=== PATIENT | female | born 1980 | race Caucasian/White ===

== ENCOUNTER 2016-08-27 07:52 | Day surgery (SDC) | payer OTHER ==
--- NOTE | 2016-08-26 15:43 | HP ---
DATE OF ADMISSION: 08/27/2016. AGE: 36-year-old female. ADMITTING DIAGNOSES: 1. Right flank pain. 2. Calculus right ureter. PLANNED PROCEDURE: Right ureteroscopy, laser lithotripsy and stent insertion. SURGEON: Dr. Bowman. HISTORY OF PRESENT ILLNESS: Paulette Colon is a 36-year-old lady who had initially been evaluated in [facility] Emergency Room for right flank pain and gross hematuria. She was diagnosed with a 6 mm calculus in the right ureter and was managed conservatively, but continues to have episodic pain and gross hematuria and an ultrasound in my office revealed a 6.7 mm calculus in the right distal ureter with significantly reduced right ureteral jet noted. I discussed with her the option of trying to continue conservative management, but because of the severity of pain, she would like to have the stone removed and is now being brought in for endoscopic management. PAST MEDICAL HISTORY: Significant for: 1. Multiple sclerosis. 2. Psoriatic arthritis. PAST SURGICAL HISTORY: Significant for six procedures for removal of uterine fibroids with recurrence of fibroids after each one. MEDICATIONS ON ADMISSION: 1. Humira every 2 weeks. 2. Methotrexate 8 pills once a week. 3. Paroxetine 20 mg daily. 4. Folic acid daily. ALLERGIES: PENICILLIN AND CLINDAMYCIN (hives with both). FAMILY HISTORY: Her grandmother has a history of extensive kidney stones. SMOKING HISTORY: She smokes one to two cigarettes a day. REVIEW OF SYSTEMS: There is no history of diabetes mellitus or any other major systemic illness other than multiple sclerosis and the psoriatic arthritis. She denies any chest pain or shortness of breath. PHYSICAL EXAMINATION GENERAL: Pleasant, mildly overweight, young lady. VITAL SIGNS: Blood pressure 132/90, pulse 66 per minute, temperature 98.1, oxygen saturation 97 percent on room air. CARDIOVASCULAR: Regular rate and rhythm, S1, S2. LUNGS: Clear bilaterally. ABDOMEN: Soft with right flank tenderness. IMPRESSION: Tcghlb-[id number]-old lady with persistent with flank pain secondary to a partially obstructing calculus in the right distal ureter. PLAN: Planned procedure is right ureteroscopy, possible laser and stent insertion. CC: Dr. Tere Márquez* [id number]/[facility] #: [id number] [facility]ERSami
[~2016-08-27 07:52] MED LIST: Buffered Lidocaine 1% SYRIN* 3 ML/SYR SYRINGE INTRADERM ONE; Dexamethasone IV* 4 MG/ML 1 ML (4 MG) IV SLOW PU ONE; Famotidine IV* 10 MG/ML 2 ML (20 mg) IV ONE; Iohexol 180 (CONTRAST) 10 ML SDV IV ONE
[2016-08-27] MEDS ORDERED: Famotidine IV* 10 MG/ML 2 ML (20 mg) ONE (08:01)
[2016-08-27] MEDS ORDERED: Dexamethasone IV* 4 MG/ML 1 ML (4 MG) ONE (08:02)
[2016-08-27] MEDS ORDERED: Levofloxacin 500 MG IVPREMIX(* 500 MG/100 ML BAG IVPB ONE ×2 (08:02→09:00)
[2016-08-27 08:20] LABS: Manual Entry Verification MR; UR Preg Internal Control QC Line Present
[2016-08-27] MEDS ORDERED: fentaNYL* 50 MCG/ML 2 ML VIAL (100 MCG VIAL) ONE ×3 (09:10→10:24)
[2016-08-27] MEDS ORDERED: Midazolam* 1 MG/ML 5 ML VIAL (5 MG) ONE (09:11)
[2016-08-27] MEDS ORDERED: Propofol* 10 MG/ML 20 ML BTL IV PUSH ONE ×2 (09:19→09:35)
[2016-08-27] MEDS ORDERED: Lidocaine 2% PF * 5 ML VIAL ONE (09:19)
[2016-08-27] MEDS ORDERED: Ondansetron INJ* 2 MG/ML VIAL ONE (09:39)
[2016-08-27] MEDS ORDERED: HYDROcodone/ACETAMIN 5-325 MG* 1 TAB PO PRN (09:48)
[2016-08-27] MEDS ORDERED: PROCHLORPERAZINE INJ 5 MG/ML 2 ML VIAL IV PRN (09:48)
[2016-08-27] MEDS: fentaNYL* 50 MCG/ML 2 ML VIAL (100 MCG VIAL) IV PRN ×2 (10:25→10:32)
[2016-08-27] MEDS ORDERED: oxyCODONE/Acetamin 5/325 MG* TAB ONE ×2 (10:50→11:21)
[2016-08-27] MEDS: oxyCODONE/Acetamin 5/325 MG* TAB PO PRN ×2 (10:51→11:22)
[2016-08-27] MEDS ORDERED: Solifenacin(NF) 5 MG TAB PO ONE (11:00)
[2016-08-27 11:37] VITALS: BP 136/64
--- NOTE | 2016-08-27 12:12 | RAD ---
CPT II Codes: 6045F INDICATION: Ureteral stent placement to treat right-sided nephrolithiasis. TECHNIQUE: Intraoperative fluoroscopy was provided during retrograde right ureteral stent placement. FINDINGS: 7 spot films depict retrograde cannulation and contrast nephrostogram of the right ureter. Final imaging depicts an anatomically aligned right ureteral stent. Fluoroscopy time: 4 seconds IMPRESSION: As above.
--- NOTE | 2016-08-27 13:16 | OP ---
OPERATIVE SUMMARY: CC: Dr. Tere Márquez; Dr. Bowman DATE OF OPERATION: 08/27/16 DATE OF : [birth year] AGE: 36 years, female. SURGEON: Dr. Bowman. ANESTHESIOLOGIST: Dr. Fermin. ANESTHESIA: General. PRE-OP DIAGNOSES: 1. Right hydronephrosis. 2. Calculus, right ureter. POST-OP DIAGNOSES: 1. Right hydronephrosis. 2. Calculus, right ureter. SURGICAL PROCEDURE: Cystoscopy, right retrograde pyelogram, right ureteroscopy, and laser lithotrip sy of right ureteral calculus and removal of calculus fragments and right stent insertion. COMPLICATIONS: None. STENT USED: 6-Macanese stent, right ureter. OPERATIVE FINDINGS: A 6 to 7 mm calculus impacted in the right distal ureter with surrounding edema and inflammation and mild right hydronephrosis. POSTOPERATIVE CONDITION: Stable. INDICATIONS: Paulette Colon is a 36-year-old lady with persistent right flank pain secondary to a ur eteral calculus in the right ureter. DESCRIPTION OF PROCEDURE: After induction of general anesthesia, the patient was placed in dorsal l ithotomy position, sequential compression devices were in place and functioning. Initials cystoscop y revealed normal-appearing bladder. Guidewire was introduced into the right ureter. Retrograde py elogram revealed mild fullness of the right collecting system. A 6-Macanese semirigid ureteroscope wa s introduced and advanced under direct vision. Approximately, 2 cm above the ureterovesical junctio n, a 6 to 7 mm calculus was noted to be impacted with surrounding edema and inflammation. Using a 5 50 micron holmium laser, this was successfully fragmented. The calculus was fairly soft and fragment ed very easily into multiple tiny fragments with the use of the laser. Some of the fragments were t oo small even to send for analysis but I removed all of the visible fragments and during the removal these crumbled into even smaller pieces. The ureteroscope was advanced into the upper ureter to ma ke sure there were no additional stones or fragments and none were noted. A 6-Macanese stent was intr oduced and positioned under fluoroscopy with good proximal and distal positioning obtained. The arlene dder was emptied. The patient tolerated the procedure satisfactorily and was transferred back to [facility] recovery area in stable condition. [id number]/[facility] #: [id number]
== END 2016-08-27 11:39 | disposition home or self-care (01) ==
LOC: OR 07:52
PROVIDERS: ATTEND Urology
DX: N13.2 Hydronephrosis with renal and ureteral calculous obstruction (principal); R31.0 Gross hematuria; G35 Multiple sclerosis; L40.50 Arthropathic psoriasis, unspecified; F17.210 Nicotine dependence, cigarettes, uncomplicated
CPT/HCPCS: 74420; 81025; 82365; 88300; A9270-GY; C1876; J1100; J1580; J1956; J2250; J2405; J2704; J3010

== ENCOUNTER 2016-09-05 18:05 | Emergency (ER) | payer OTHER ==
[2016-09-05] MEDS ORDERED: NS 0.9% 1000 ML* 1,000 ML IV ONE (21:36)
[2016-09-05] MEDS ORDERED: Morphine INJ* 4 MG/ML 1 ML SYRINGE IV ONE (21:36)
[2016-09-05] MEDS ORDERED: Ondansetron INJ* 2 MG/ML VIAL IV ONE (21:36)
[2016-09-05 22:11] LABS: Urine Bacteria 1+ (Absent); Urine Bilirubin Negative (Negative); Urine Glucose Negative (Negative); Urine Nitrite Negative (Negative)
[2016-09-05 22:22] LABS: Albumin 4.2 g/dL (3.2-5.2); BUN/Creatinine Ratio 21.9 (8-20); C Reactive Protein 12.64 mg/L (< 5.00); Calcium 9.4 mg/dL (8.6-10.3); EGFR African American 115.4 (>60); EGFR Non-African American 89.7 (>60); Globulin 3.5 g/dL (2-4); Total Bilirubin 0.4 mg/dL (0.2-1.0); Total Protein 7.7 g/dL (6.4-8.9)
[2016-09-05 22:23] LABS: Hematocrit 41 % (35-47); Mean Corpuscular HGB Conc 32 g/dl (31-36); Mean Corpuscular Hemoglobin 26 pg (27-31); Mean Corpuscular Volume 82 fL (80-97); Mean Platelet Volume 8 um3 (7.4-10.4); Red Blood Count 4.93 10^6/ul (4.0-5.4); Red Cell Distribution Width 17 % (10.5-15); White Blood Count 13.3 10^3/ul (3.5-10.8)
--- NOTE | 2016-09-05 22:50 | ED ---
Abdominal Pain/Female - HPI Summary HPI Summary: Patient presents with LLQ and RLQ abdominal pain that began this afternoon. She has a history of kidney stone removal and stent placement two weeks ago with stent removal three days ago. Her post-surgical course was uneventful until today. Her urine was bloody the whole time the stent was in place, but has been clear since its removal. She denies fever, chills, vaginal discharge, N/V/D or urinary symptoms. - History of Current Complaint Chief Complaint: EDGeneral Stated Complaint: ABD PAIN Time Seen by Provider: 09/05/16 21:14 Hx Obtained From: Patient Hx Last Menstrual Period: polyp surgery 3 weeks ago - nothing since then ?: No Onset/Duration: Sudden Onset, Lasting Hours Timing: Constant Severity Initially: Moderate Severity Currently: Moderate Pain Intensity: 6 Location: Suprapubic - LLQ and RLQ Radiates: No Character: Sharp Aggravating Factor(s): Nothing Alleviating Factor(s): Nothing Associated Signs and Symptoms: Positive: Negative Allergies/Adverse Reactions: Allergies Allergy/AdvReac Type Severity Reaction Status Date / Time [place] Allergy Severe Swelling Verified 08/27/16 08:07 Of Face,Lips,& Throat Clindamycin Allergy Intermediate Hives Verified 08/27/16 08:07 Penicillins Allergy Intermediate Hives Verified 08/27/16 08:07 PMH/Surg Hx/FS Hx/Imm Hx Cardiovascular History: Reports: Hx Hypertension - Hx OF, WHEN GI History: Reports: Hx Crohn's Disease - YOUNG TEENAGER, NO Sx SINCE EARLY 20s, Hx Ulcer - bleeding ulcer in stomach several years ago - resolved History: Reports: Hx Kidney Stones, Other Problems/Disorders - uterine polyps-D&C Musculoskeletal History: Reports: Hx Arthritis - psoriatic arthritis, Hx Back Problems Sensory History: Reports: Hx Contacts or Glasses - CONTACTS, WILL PROBABLY WEAR & BRING CASE Denies: Hx Hearing Aid Opthamlomology History: Reports: Hx Contacts or Glasses - CONTACTS, WILL PROBABLY WEAR & BRING CASE Neurological History: Reports: Hx Migraine - Hx OF, Hx Nerve Disease - nerve pain from MS, Psoriatic arthritis, Other Neuro Impairments/Disorders - Multiple Sclerosis rheumatoid arthritis Psychiatric History: Reports: Hx Anxiety, Hx Depression, Hx Panic Disorder - occasional - Cancer History Hx Chemotherapy: No Hx Radiation Therapy: No - Surgical History Surgery Procedure, Year, and Place: d&c, uterine polypectomy x5 Hx Anesthesia Reactions: No Infectious Disease History: No Infectious Disease History: Denies: Hx Clostridium Difficile, Hx Hepatitis, Hx Human Immunodeficiency Virus (HIV), Hx of Known/Suspected MRSA, Hx Shingles, Hx Tuberculosis, Traveled Outside the [place] in Last 30 Days - Family History Known Family History: Positive: None - Social History Occupation: Employed Full-time Lives: With Family Alcohol Use: None Alcohol Amount: 2 beers/week Substance Use Type: Reports: None Smoking Status (MU): Light Every Day Tobacco Smoker Type: Cigarettes Amount Used/How Often: 1-2 cigarettes/day,20 years Length of Time of Smoking/Using Tobacco: 18 YRS Have You Smoked in the Last Year: Yes Cessation Counseling: Patient Advised to Stop Review of Systems Negative: Fever, Chills Negative: Shortness Of Breath Positive: Abdominal Pain. Negative: Vomiting, Diarrhea, Nausea Positive: no symptoms reported All Other Systems Reviewed And Are Negative: Yes Physical Exam Triage Information Reviewed: Yes Vital Signs On Initial Exam: Initial Vitals Temp Pulse Resp BP Pulse Ox 98.5 F 77 20 152/78 100 09/05/16 18:44 09/05/16 18:44 09/05/16 18:44 09/05/16 18:44 09/05/16 18:44 Vital Signs Reviewed: Yes Appearance: Positive: Well-Appearing, Pain Distress, Obese Skin: Positive: Warm, Skin Color Reflects Adequate Perfusion, Dry, Soft Head/Face: Positive: Normal Head/Face Inspection Eyes: Positive: EOMI, WILLIAM, Conjunctiva Clear ENT: Positive: Hearing grossly normal Respiratory/Lung Sounds: Positive: Clear to Auscultation, Breath Sounds Present Cardiovascular: Positive: RRR Abdomen Description: Positive: Soft. Negative: Nontender - TTP suprapubic, LLQ and RLQ regions, CVA Tenderness (R), CVA Tenderness (L), Distended, Guarding Bowel Sounds: Positive: Present Musculoskeletal: Negative: Edema Left, Edema Right Neurological: Positive: Sensory/Motor Intact, Alert, Oriented to Person Place, Time, [place] Bundle Intact Distally, Normal Gait Psychiatric: Positive: Affect/Mood Appropriate AVPU Assessment: Alert - [place] Coma Scale Coma Scale Total: 15 Diagnostics - Vital Signs Vital Signs Temp Pulse Resp BP Pulse Ox 09/05/16 21:55 16 09/05/16 20:05 98.5 F 95 16 163/67 100 05/19/17 18:46 98.5 F 77 16 152/78 100 09/05/16 18:44 98.5 F 77 20 152/78 100 - Laboratory Lab Results: Lab Results 09/05/16 09/05/16 09/05/16 Range/Units 21:55 21:55 21:55 WBC 13.3 H (3.5-10.8) 10^3/ul RBC 4.93 (4.0-5.4) 10^6/ul Hgb 13.0 (12.0-16.0) g/dl Hct 41 (35-47) % MCV 82 (80-97) fL MCH 26 L (27-31) pg MCHC 32 (31-36) g/dl RDW 17 H (10.5-15) % Plt Count 320 (150-450) 10^3/ul MPV 8 (7.4-10.4) um3 Neut % (Auto) 72.1 (38-83) % Lymph % (Auto) 21.6 L (25-47) % Loving % (Auto) 5.7 (1-9) % Eos % (Auto) 0 (0-6) % Baso % (Auto) 0.6 (0-2) % Absolute Neuts (auto) 9.6 H (1.5-7.7) 10^3/ul Absolute Lymphs (auto) 2.9 (1.0-4.8) 10^3/ul Absolute Monos (auto) 0.8 (0-0.8) 10^3/ul Absolute Eos (auto) 0 (0-0.6) 10^3/ul Absolute Basos (auto) 0.1 (0-0.2) 10^3/ul Absolute Nucleated RBC 0.05 10^3/ul Nucleated RBC % 0.4 Sodium 136 (133-145) mmol/L Potassium Pending Chloride 104 (101-111) mmol/L Carbon Dioxide 22 (22-32) mmol/L Anion Gap Pending BUN 16 (6-24) mg/dL Creatinine 0.73 (0.51-0.95) mg/dL Est GFR ( Amer) 115.4 (>60) Est GFR (Non-Af Amer) 89.7 (>60) BUN/Creatinine Ratio 21.9 H (8-20) Glucose 87 (70-100) mg/dL Lactic Acid (0.5-2.0) mmol/L Calcium 9.4 (8.6-10.3) mg/dL Total Bilirubin 0.40 (0.2-1.0) mg/dL AST Pending ALT 18 (7-52) U/L Alkaline Phosphatase 77 (34-104) U/L C-Reactive Protein 12.64 H (< 5.00) mg/L Total Protein 7.7 (6.4-8.9) g/dL Albumin 4.2 (3.2-5.2) g/dL Globulin 3.5 (2-4) g/dL Albumin/Globulin Ratio 1.2 (1-3) Urine Color Yellow Urine Appearance Cloudy Urine pH 5.0 (5-9) Ur Specific [place] 1.019 (1.010-1.030) Urine Protein Negative (Negative) Urine Ketones Negative (Negative) Urine Blood 1+ H (Negative) Urine Nitrate Negative (Negative) Urine Bilirubin Negative (Negative) Urine Urobilinogen Negative (Negative) Ur Leukocyte Esterase 3+ H (Negative) Urine WBC (Auto) 3+(>20/hpf) H (Absent) Urine RBC (Auto) 3+(>10/hpf) H (Absent) Ur Squamous Epith Cells Present H (Absent) Urine Bacteria 1+ H (Absent) Urine Glucose Negative (Negative) 09/05/16 Range/Units 21:55 WBC (3.5-10.8) 10^3/ul RBC (4.0-5.4) 10^6/ul Hgb (12.0-16.0) g/dl Hct (35-47) % MCV (80-97) fL MCH (27-31) pg MCHC (31-36) g/dl RDW (10.5-15) % Plt Count (150-450) 10^3/ul MPV (7.4-10.4) um3 Neut % (Auto) (38-83) % Lymph % (Auto) (25-47) % Loving % (Auto) (1-9) % Eos % (Auto) (0-6) % Baso % (Auto) (0-2) % Absolute Neuts (auto) (1.5-7.7) 10^3/ul Absolute Lymphs (auto) (1.0-4.8) 10^3/ul Absolute Monos (auto) (0-0.8) 10^3/ul Absolute Eos (auto) (0-0.6) 10^3/ul Absolute Basos (auto) (0-0.2) 10^3/ul Absolute Nucleated RBC 10^3/ul Nucleated RBC % Sodium (133-145) mmol/L Potassium Chloride (101-111) mmol/L Carbon Dioxide (22-32) mmol/L Anion Gap BUN (6-24) mg/dL Creatinine (0.51-0.95) mg/dL Est GFR ( Amer) (>60) Est GFR (Non-Af Amer) (>60) BUN/Creatinine Ratio (8-20) Glucose (70-100) mg/dL Lactic Acid 0.7 (0.5-2.0) mmol/L Calcium (8.6-10.3) mg/dL Total Bilirubin (0.2-1.0) mg/dL AST ALT (7-52) U/L Alkaline Phosphatase (34-104) U/L C-Reactive Protein (< 5.00) mg/L Total Protein (6.4-8.9) g/dL Albumin (3.2-5.2) g/dL Globulin (2-4) g/dL Albumin/Globulin Ratio (1-3) Urine Color Urine Appearance Urine pH (5-9) Ur Specific [place] (1.010-1.030) Urine Protein (Negative) Urine Ketones (Negative) Urine Blood (Negative) Urine Nitrate (Negative) Urine Bilirubin (Negative) Urine Urobilinogen (Negative) Ur Leukocyte Esterase (Negative) Urine WBC (Auto) (Absent) Urine RBC (Auto) (Absent) Ur Squamous Epith Cells (Absent) Urine Bacteria (Absent) Urine Glucose (Negative) Result Diagrams: 09/05/16 21:55 09/05/16 21:55 Lab Statement: Any lab studies that have been ordered have been reviewed, and results considered in the medical decision making process. - CT No standard instances CT Interpretation: Positive (See Comments) CT Interpretation Completed By: Radiologist - right ovarian cyst Re-Evaluation - Re-Evaluation First Eval Re-Evaluation Time: 22:45 Change: Improved - pain decreased. Abdominal Pain Fem Course/Dx - Diagnoses Differential Diagnosis: Positive: Appendicitis, Bowel Obstruction, Ovarian Cyst , Peptic Ulcer Disease, Renal Colic, Urinary Tract Infection Provider Diagnoses: Right ovarian cyst Discharge - Discharge Plan Condition: Stable Disposition: HOME Prescriptions: Hydrocodone-Acetaminophen [[place] 5-325 mg] 1 tab PO Q4H PRN #18 tab MDD 6 PRN Reason: Pain Patient Education Materials: Ruptured Ovarian Cyst (ED) Referrals: Tere Márquez MD [Primary Care Provider] - Additional Instructions: Please call your MOLD INSPECTOR Thursday to discuss tonight's visit and findings. Use the pain medication provided as needed. Return to the emergency department if symptoms worsen.
[2016-09-05 23:04] LABS: Potassium 5.4 mmol/L (3.5-5.0)
[2016-09-06] MEDS ORDERED: Iohexol 300* (CONTRAST) 10 ML SDV IV ONE (00:45)
[2016-09-06] MEDS ORDERED: Morphine INJ* 4 MG/ML 1 ML SYRINGE IV ONE (00:59)
[2016-09-06 02:17] VITALS: BP 140/58
[2016-09-06] MEDS ORDERED: HYDROcodone/ACETAMIN 5-325 MG* 1 TAB PO ONE (02:18)
--- NOTE | 2016-09-06 07:53 | RAD ---
CLINICAL HISTORY: Diffuse abdominal pain COMPARISON: February 10, 2015 TECHNIQUE: Multiple contiguous axial CT scans were obtained of the abdomen and pelvis after the administration of intravenous contrast. Coronal and sagittal multiplanar reformations are submitted for review. Oral contrast was administered. Delayed images were obtained through the abdomen and pelvis. FINDINGS: LUNG BASES: The lung bases are clear. LIVER: The liver is normal in shape, size, contour, and attenuation. BILE DUCTS: There is no intrahepatic or extrahepatic biliary dilatation. GALLBLADDER: The gallbladder is normal, without pericholecystic inflammatory change. PANCREAS: The pancreas is normal, without mass or ductal dilatation. SPLEEN: Normal in size and appearance. UPPER GI TRACT: Evaluation of the gastrointestinal tract is limited by incomplete gastric distention. The upper GI tract is unremarkable. SMALL BOWEL AND MESENTERY: The small bowel is normal in contour, course, and caliber. There is no obstruction or dilatation. COLON: The colon is normal in contour, course, caliber. There is no pericolonic inflammatory change. There is a tubular, vermiform, hollow viscus that is blind ending, and originates from the cecum, consistent with a normal appendix. There is no periappendiceal inflammatory change. ADRENALS: Normal bilaterally. KIDNEYS: The kidneys are normal in shape, size, contour, and axis. There is no hydronephrosis or nephrolithiasis. BLADDER: The bladder is incompletely distended but is grossly normal. PELVIC ORGANS: An IUD is noted, along the lower uterine segment extending through the cervix. There is a 3.3 cm right ovarian cyst. AORTA: The aorta is normal. IVC: Unremarkable LYMPH NODES: There is no lymphadenopathy by size criteria. ABDOMINAL WALL: There is no evidence for abdominal wall hernia. BONES AND SOFT TISSUES: Unremarkable OTHER: There is a trace amount of free fluid within the pelvis. IMPRESSION: 1. LOW-LYING IUD EXTENDING THROUGH THE CERVIX. 2. 3.3 CM RIGHT OVARIAN CYST. 3. SMALL AMOUNT OF FREE FLUID WITHIN THE PELVIC CUL-DE-SAC..
--- NOTE | 2016-09-08 22:20 | PN ---
Progress Note - Progress Note Note: urine culture preliminary results obtained and staph epidermidis 10-25,000 grew. No change or treatment needed at this time. Patient was diagnosed with a ruptured ovarian cyst.
== END 2016-09-06 02:34 | disposition home or self-care (01) ==
LOC: ED 18:05
DX: N83.201 Unspecified ovarian cyst, right side (principal); R10.32 Left lower quadrant pain; F17.210 Nicotine dependence, cigarettes, uncomplicated
CPT/HCPCS: 36415; 74177; 80053; 81003; 81015; 83605; 85025; 86140; 87077; 87086; 87186; 99283; J2270; J2405; Q9967

== ENCOUNTER 2017-03-20 08:44 | Emergency (ER) | payer OTHER ==
[2017-03-20 08:51] VITALS: BP 126/76
[2017-03-20] MEDS ORDERED: GuaiFENesin DM* 5 ML UDC PO ONE (09:01)
[2017-03-20] MEDS ORDERED: Ibuprofen TAB* 600 MG PO ONE (09:01)
--- NOTE | 2017-03-20 09:07 | UC ---
Respiratory Complaint HPI - HPI Summary HPI Summary: 37 year old female with history of MS and psoriatic arthritis here with cough for two weeks. Reports dry cough for two weeks worsening. No runny nose but reports sinuses feel congested and facial heaviness. She denies n/v/sob. Rib pain and chest pain due to coughing. No other complaints. - History of Current Complaint Chief Complaint: UCRespiratory Stated Complaint: COUGH DIZZY Time Seen by Provider: 03/20/17 08:53 Hx Last Menstrual Period: 03/13/17 Onset/Duration: Lasting Weeks Severity Initially: Mild Aggravating Factors: Deep Breaths Associated Signs And Symptoms: Positive: Dizziness, Sinus Discomfort - Allergies/Home Medications Allergies/Adverse Reactions: Allergies Allergy/AdvReac Type Severity Reaction Status Date / Time [place] Allergy Severe Swelling Verified 03/20/17 08:51 Of Face,Lips,& Throat Clindamycin Allergy Intermediate Hives Verified 03/20/17 08:51 Penicillins Allergy Intermediate Hives Verified 03/20/17 08:51 PMH/Surg Hx/FS Hx/Imm Hx Endocrine History: Other - psoriatic arthritis Other Endocrine History: arthritis Neurological History: Other - MS Other Neurological History: ms - Surgical History Surgical History: Yes Surgery Procedure, Year, and Place: d&c, uterine polypectomy x5 - Family History Known Family History: Positive: None - Social History Alcohol Use: None Alcohol Amount: 2 beers/week Substance Use Type: None Smoking Status (MU): Former Smoker Type: Cigarettes Amount Used/How Often: 1-2 cigarettes/day,20 years Length of Time of Smoking/Using Tobacco: 18 YRS Have You Smoked in the Last Year: Yes Household Exposure Type: Cigarettes - Immunization History Most Recent Influenza Vaccination: Not UTD Review of Systems Constitutional: Negative Skin: Negative Eyes: Negative ENT: Negative, Sinus Pain/Tenderness Respiratory: Negative, Cough Cardiovascular: Negative, Chest Pain Gastrointestinal: Negative Genitourinary: Negative Motor: Negative Neurovascular: Negative Musculoskeletal: Negative Neurological: Negative Psychological: Negative Is Patient Immunocompromised?: Yes All Other Systems Reviewed And Are Negative: Yes Physical Exam Triage Information Reviewed: Yes Appearance: Well-Appearing, No Pain Distress, Well-Nourished Vital Signs: Initial Vital Signs Temp 36.8 C 03/20/17 08:47 Pulse 82 03/20/17 08:47 Resp 18 03/20/17 08:47 BP 126/76 03/20/17 08:47 Pulse Ox 100 03/20/17 08:47 Eye Exam: Normal ENT: Positive: Pharyngeal erythema, Sinus tenderness Respiratory: Positive: Chest non-tender, Lungs clear, Normal breath sounds, No respiratory distress, No accessory muscle use Cardiovascular Exam: Normal Cardiovascular: Positive: RRR, No Murmur Abdominal Exam: Normal Abdomen Description: Positive: Nontender Musculoskeletal: Positive: No Edema Neurological: Positive: Alert Skin Exam: Normal UC Diagnostic Evaluation - Laboratory O2 Sat by Pulse Oximetry: 100 - EKG Cardiac Rate: NL Cardiac Rhythm: Sinus: Normal Respiratory Course/Dx - Course Course Of Treatment: Cough. Since patient is immunocompromised with concern of pneumonia as symptoms over two weeks, will do CXR and EKG symptomatic treatment. Likely dc with abx for sinusits +/- pneumonia. Addendum. CXR is negative. Will give levaquin for sinusitis as patient is allergive to n. - Differential Dx/Diagnosis Differential Diagnosis/HQI/PQRI: Bronchitis, Lower Resp Infection Provider Diagnoses: Cough Discharge - Discharge Plan Condition: Good Disposition: HOME Patient Education Materials: Sinusitis (ED) Forms: *Work Release Referrals: Tere Márquez MD [Primary Care Provider] -
[2017-03-20] MEDS ORDERED: guaiFENesin LIQ* 100 MG/5 ML UDC ONE (09:24)
[2017-03-20] MEDS ORDERED: guaiFENesin LIQ* 100 MG/5 ML UDC PO ONE (09:29)
--- NOTE | 2017-03-20 09:33 | RAD ---
INDICATION: Cough COMPARISON: None TECHNIQUE: PA and lateral dual-energy views were obtained. FINDINGS: Bones/Soft Tissues: There are no acute bony findings. Cardiomediastinal: The cardiomediastinal silhouette is normal. Lungs: There are no infiltrates. Pleura: There are no pleural effusions. Other: None IMPRESSION: NO ACTIVE DISEASE
== END 2017-03-20 10:06 | disposition home or self-care (01) ==
LOC: UCEAST 08:44
DX: R05 Cough (principal); G35 Multiple sclerosis; Z87.891 Personal history of nicotine dependence; Z72.89 Other problems related to lifestyle
CPT/HCPCS: 71020; 87070; 87651; 93005; 99212; A9270-GY; G0463